=== PATIENT | female | born 1985 | race Caucasian/White ===

== ENCOUNTER 2019-03-21 16:16 | Emergency (ER) | payer SELFPAY ==
[2019-03-21] MEDS ORDERED: Ketorolac 60 MG/2 ML SDV IM ONE (16:43)
--- NOTE | 2019-03-21 16:46 | EDM.PDOC ---
ED HPI GENERAL MEDICAL PROBLEM - General Chief Complaint: ENT Problem Stated Complaint: TOOTH ACHE Time Seen by Provider: 03/21/19 16:34 Source of Information: Reports: Patient History Limitations: Reports: No Limitations - History of Present Illness INITIAL COMMENTS - FREE TEXT/NARRATIVE: 33 yo presents with right lower tooth pain. broke tooth off 4 months ago, and another Right Lower Jaw Pain Score (Numeric/FACES): 10 - Related Data Allergies Allergy/AdvReac Type Severity Reaction Status Date / Time No Known Allergies Allergy Verified 03/21/19 16:38 Home Meds: Home Meds NK [No Known Home Meds] 03/21/19 [History] Past Medical History - Past Health History Medical/Surgical History: Denies Medical/Surgical History - Past Surgical History Musculoskeletal Surgical History: Reports: Other (See Below) Other Musculoskeletal Surgeries/Procedures:: removed glass out of left knee recently Social & Family History - Tobacco Use Smoking Status *Q: Never Smoker - Caffeine Use Caffeine Use: Reports: None - Recreational Drug Use Recreational Drug Use: No ED ROS ENT - Review of Systems Review Of Systems: See Below Constitutional: Denies: Fever, Chills HEENT: Reports: Dental Pain Respiratory: Denies: Shortness of Breath, Wheezing Cardiovascular: Denies: Chest Pain ED EXAM, ENT - Physical Exam Exam: See Below Exam Limited By: No Limitations General Appearance: Alert, WD/WN, No Apparent Distress Mouth/Throat: Dental Pain (broken teeth 30, 31, and 32 with multiple caries throughout. tooth 32 has jagged remaining tooth mild gum swelling surrounding right lower molars) Head: Atraumatic, Normocephalic Neck: Lymphadenopathy (R). No: Lymphadenopathy (L) Respiratory/Chest: No Respiratory Distress, Lungs Clear. No: Crackles, Rhonchi , Wheezing Cardiovascular: Regular Rate, Rhythm Course - Vital Signs Last Recorded V/S: Last Vital Signs Temp 36.3 C 03/21/19 16:39 Pulse 61 03/21/19 16:39 Resp 16 03/21/19 16:39 BP 123/43 L 03/21/19 16:39 Pulse Ox 96 03/21/19 16:39 - Orders/Labs/Meds Meds: Medications Discontinued Medications Generic Name Dose Route Start Last Admin Trade Name Freq PRN Reason Stop Dose Admin Ketorolac Tromethamine 60 mg 03/21/19 16:43 Toradol IM 03/21/19 16:44 ONETIME ONE Departure - Departure Time of Disposition: 16:48 Disposition: Home, Self-Care 01 Condition: Good Clinical Impression: Dental caries extending into dentin, Dental abscess Fracture of tooth Qualifiers: Encounter type: initial encounter Fracture type: closed Qualified Code(s): S02.5XXA - Fracture of tooth (traumatic), initial encounter for closed fracture - Discharge Information *PRESCRIPTION DRUG MONITORING PROGRAM REVIEWED*: Not Applicable *COPY OF PRESCRIPTION DRUG MONITORING REPORT IN PATIENT CONNIE: Not Applicable Instructions: Dental Abscess Referrals: PCP,None [Primary Care Provider] - Forms: ED Department Discharge Additional Instructions: clindamycin 300 mg three times daily for 7 days ibuprofen 600 mg every 6 hours as needed for pain. may also use tylenol 1000 mg every 6 hours up to 3000 mg per 24 hour period follow-up with dental care
== END 2019-03-21 17:12 | disposition home or self-care (01) ==
LOC: JP.ED 16:16
DX: K04.7 Periapical abscess without sinus (principal); K03.81 Cracked tooth; K02.9 Dental caries, unspecified
CPT/HCPCS: 96372; 99282; J1885